=== PATIENT | male | born 1950 | race Caucasian/White ===

== ENCOUNTER → 2017-11-08 | Outpatient (CLI) | payer MEDICARE, OTHER ==
[~2017-11-08] MED LIST: ASPI81TA86 PO; CALC-635 PO; FEXO180T74 PO; FEXO180T87 PO; FLUT16SP19 NS; GLIM4TAB50 PO; GLY5 PO; HYDR-2966 PO; INSU100I30 SQ; LISI-355 PO; LISI-362 PO; METF-420 PO; METF10002 PO; METO-253 PO; METO100T20 PO; MOMR NS; OMEG-11 PO; OMEP-125 PO; OMEP-153 PO; PEN1DIS. MC; PNEI IJ; SIMV-49 PO; SITA100T9 PO
--- NOTE | 2017-11-09 20:25 | RADIOLOGY IMAGING REPORT ---
FACILITY: [facility] [place] PATIENT NAME: IMAN BO : [id number] MR: [id number] V: [id number] EXAM DATE: ORDERING PHYSICIAN: MJ TAN TECHNOLOGIST: Caty Quarles EXAMINATION:TWO-DIMENSIONAL ECHOCARDIOGRAPH REASON:NONRHEUMATIC AORTIC STENOSIS 2D Measurements (normal values in centimeters) LV endLV endRV endVent.LV PostAorticLeftPercent DiastolicSystolicDiastolicSeptumWallRootAtriumShortening (3.5-5.7)(0.9-2.6)(0.6-1.1)(0.6-1.1)(2.0-3.7)(1.9-4.0)(25-35%) [id number]% STROKE VOLUME: 77ml ESTIMATED EJECTION FRACTION:62% PARASTERNAL LONG AXIS: Overall left ventricular systolic function appears to be normal. Right ventricle appears to contract normally & the TAPSE is measured within normal ranges at 2.4. There is mild concentric left ventricle thickening. No evidence for any outflow tract obstruction. There is mitral annular calcification & the aortic valve appears to be very stenotic. Color examination of the valves reveals a trace of aortic insufficiency & a trace of mitral insufficiency in this view. PARASTERNAL SHORT AXIS: Overall left ventricular function again appears to be normal. Mild concentric left ventricle thickening present. The right ventricle is enlarged. Aortic valve is not well seen but probably is trileaflet in configuration. It is heavily stenotic. APICAL FOUR AND TWO CHAMBER: Normal left ventricular systolic function. The chamber sizes appear to be normal except for the left atrium which appears to be enlarged in this view. The right ventricle appears to be normal in size in this view. Aortic valve area was measured at .56cm2 with a mean pressure gradient across the valve of 54mm Hg & a dimensionless index of .2. Mitral valve area measured within normal ranges at 2.6cm2. The tricuspid regurgitation Vmax measured 1.6m/sec. Left atrial volume is moderately increased at 38ml/m2. Right atrial volume is measured within normal ranges at 27ml/m2. Trace of mitral & tricuspid insufficiency is noted. SUBCOSTAL VIEW: No pericardial effusion was noted. No atrioseptal or ventriculoseptal defects were appreciated. Doppler examination of the mitral valve in diastole does reveal the A wave > E wave. IVC is normal in size. OVERALL IMPRESSION: 1. Normal left ventricular ejection fraction of approximately 62% with a Grade 1 mild decrease in diastolic function. 2. Mild concentric left ventricular thickening but no evidence for any outflow tract obstruction. 3. Right ventricle is mildly enlarged & the left atrium is also moderately enlarged. 4. Possible trileaflet aortic valve. It appears to be heavily calcified & severely stenotic. The valve area measures .56cm2 with a mean pressure gradient across the valve of 54mm Hg & a dimensionless index of .2. A trace of aortic insufficiency was noted. 5. Mitral annular calcification but mitral valve appears to open normally. There is a trace of mitral insufficiency. 6. Trace of pulmonic insufficiency. 7. Trace amount of tricuspid insufficiency with estimated right ventricular systolic pressures within normal ranges at 14mm Hg. 8. In comparison with the examination done on 09/14/16 the aortic valve has gotten significantly smaller. It is now in the severely stenotic range. The left ventricle has also increased in size as well as the right ventricle. No other changes were noted. Dictated by: Keshawn Lin M.D. on 11/08/2017 at 17:35 Transcribed by: ANY on 11/09/2017 at 10:18 Approved by: Keshawn Lin M.D. on 11/09/2017 at 20:24 [facility]
== END ==
LOC: US 02:21
PROVIDERS: ATTEND Internal Medicine Cardiovascular Disease
DX: I50.30 Unspecified diastolic (congestive) heart failure (principal); I51.7 Cardiomegaly; I25.10 Atherosclerotic heart disease of native coronary artery without angina pectoris; I35.2 Nonrheumatic aortic (valve) stenosis with insufficiency; I34.0 Nonrheumatic mitral (valve) insufficiency
CPT/HCPCS: 93306

== ENCOUNTER → 2018-02-02 | Outpatient (CLI) | payer MEDICARE, OTHER ==
[~2018-02-02] MED LIST changes: +INSU100I10 SC; +METF-421 PO
== END ==
LOC: LAB 08:08
PROVIDERS: ATTEND Emergency Medicine
DX: E11.9 Type 2 diabetes mellitus without complications (principal)
CPT/HCPCS: 36415; 83036

== ENCOUNTER → 2018-04-07 | Outpatient (CLI) | payer MEDICARE, OTHER ==
[~2018-04-07] MED LIST changes: -METF-421 PO; +METF-452 PO; +NPH,100V12 SQ; +SYRI-1525 MC; +bipap
== END ==
LOC: RESP 19:45
PROVIDERS: ATTEND Emergency Medicine
DX: G47.33 Obstructive sleep apnea (adult) (pediatric) (principal); G47.61 Periodic limb movement disorder; G47.36 Sleep related hypoventilation in conditions classified elsewhere

== ENCOUNTER → 2018-08-04 | Outpatient (CLI) | payer MEDICARE ==
[2018-08-04 08:01] LABS: PLATELET COUNT, AUTOMATED 230 K/uL (150-450)
[2018-08-04 09:12] LABS: LDL CHOLESTEROL 33 mg/dl
== END ==
LOC: LAB 07:45
PROVIDERS: ATTEND Emergency Medicine
DX: Z12.5 Encounter for screening for malignant neoplasm of prostate (principal); E78.5 Hyperlipidemia, unspecified; I10 Essential (primary) hypertension; E11.9 Type 2 diabetes mellitus without complications
CPT/HCPCS: 36415; 83036; 85025; G0103; 82040; 82247; 82310; 82374; 82435; 82465; 82565; 82947; 83718; 84075; 84132; 84153; 84155; 84295; 84450; 84460; 84478; 84520

== ENCOUNTER 2019-03-16 10:00 | Outpatient (RCR) | payer MEDICARE ==
[2018-12-18 16:52] VITALS: BP 112/64
[2018-12-18 16:54] VITALS: BP 118/66
--- NOTE | 2018-12-20 13:39 | CARDIAC REHAB PLAN OF CARE ---
Physician: Solitario Brown MD Patient is being seen: Prudence Rudolph MS Medical Diagnosis: TAVR Date of Onset: 12/05/18 Date of Initial Evaluation: 12/18/18 INTERVENTIONS: Due Date: 01/20/19 Patient Assessment: Patient is a 67yr old male who comes to cardiac rehab following a TAVR placement on 12/05/18. He has a significant health history with HTN, high cholesterol, Type 2 Diabetes, and sleep apnea. He is 510 and weighs 225lbs, resulting in a BMI of 32.3 kg/m2. He is moderately sedentaryreporting that he and his go for a 45 min walk most days of the week, but other than that he does not do much physical activity. He is somewhat motivated to begin this program, and has established the following goals: 1. To improve overall health and feel better on a regular basis, 2. To improve stamina, 3. To increase his life expectancy and maintain independence. Exercise Assessment: Patients physical activity history primary consists of leisure walking. During his 6-MinuteWalk Test, the patient walked a total of 1325ft for an average speed of 2.5mph. For exercise machines, the patient prefers using the NuStep, arm ergometer, and upright bike (with the upright bike increasing his HR the most). While exercising, the patients HR remained between 70-103bpm and SPO2 dropped to 83%. With proper breathing techniques the patient is capable of maintaining SPO2 saturations >90%. The patient reports wanting to do strength training exercises at home. He does not have any experience with stretches/flexibility training and will need to be coached. Exercise Plan Goals: Goals will be to slowly increase intensity of exercise via THR and average METs achieved. We also will aim to educate the patient such that he knows how to use proper breathing techniques and the importance of stretching on a regular basis. Exercise Prescription: Frequency: 3 Days/Week (MWF), may need to adjust for patients summer schedule. Intensity: [id number], METs 3.5-4.0 Time: 40 minutes/session Exercise Reassessment (Date: ) Exercise Discharge/Follow-Up (Date: ) Nutrition Assessment: The patient is somewhat disinterested in talking about diet. He reports his is in charge of their nutrition, so he does not pay much attention. He reports losing approximately 20lbs over the past 2 years, with portion control being the main altering factor. They eat a typical [place] style diet, but have been trying to incorporate more vegetables and fish, while reducing the amount of red meat they consume. The patient reports his biggest weak points are ice cream and portion control. Nutrition Plan Goals: To help facilitate nutrition education in combination with his spouse. It is our goal to make the patient have interest and take responsibility for his dietary intake. Intervention: Our main goal will be to provide heart healthy education on a regular, if not daily basis. Regular nutritional conversation will help create a sense of responsibility and importance in the patients mind. Education: Education will focus on the importance of high fruits and vegetables, fiber/whole grain, and healthy nutritional swaps that can be made in place of his favorite foods. Nutrition Reassessment (Date: ) Nutrition Discharge/Follow-Up (Date: ) Psychosocial Assessment: The patient appears to be an overall happy person with an overall positive outlook and respect for the people around him. He scored relatively low on his Hospital Anxiety and Depression Scale (HADS) assessment2/21 for depression and 5/21 for anxiety. The patient is appropriately responsive, but does seem to have some memory and focus/attention deficit. Psychosocial Plan Goals: Our goal is to provide and maintain a positive exercise environment where the patient feels safe and comfortable exercising, learning, and socializing. Intervention: We will aim to get to know the patient on a professional level, such that we can alter his CR program to fit his needs. We need to identify the ways of which he is most easily motivated so we can tailor our discussions to fit his personality and influences. Education: Education will focus on benefits of exercise and socialization for overall health and longevity. Psychosocial Reassessment (Date: ) Psychosocial Discharge/Follow-Up (Date: ) ANANT
[2018-12-20 16:56] VITALS: BP 128/66
[2018-12-20 16:58] VITALS: BP 122/76
[2018-12-22 12:55] VITALS: BP_SYST 124; BP_SYST 128; BP_DIAS 68; BP_DIAS 80
[2018-12-25 12:52] VITALS: BP_SYST 122; BP_SYST 128; BP_DIAS 68; BP_DIAS 82
[2018-12-29 17:26] VITALS: BP 128/80
[2018-12-29 17:28] VITALS: BP 120/70
[2019-01-01 15:53] VITALS: BP_SYST 118; BP_SYST 122; BP_DIAS 62; BP_DIAS 70
[2019-01-03 16:39] VITALS: BP_SYST 110; BP_SYST 118; BP_DIAS 62; BP_DIAS 64
[2019-01-05 12:52] VITALS: BP 128/66
[2019-01-05 12:53] VITALS: BP 106/70
[2019-01-10 13:01] VITALS: BP 114/62
[2019-01-10 13:02] VITALS: BP 136/56
--- NOTE | 2019-01-16 10:43 | CARDIAC REHAB PLAN OF CARE ---
Physician: Solitario Brown MD Patient is being seen: Prudence Rudolph MS Medical Diagnosis: TAVR Date of Onset: 12/05/18 Date of Initial Evaluation: 12/18/18 Date patient was last seen: 01/10/19 Number of treatments: 10 Number of cancellations/No Shows: 2 INTERVENTIONS: Due Date: 02/15/19 Exercise Reassessment (Date: 01/20/19): The patient has been improving at a gradual pace for the previous month. He has attended regularly and exercises for approximately 50-60 minutes/session. The biggest challenge is to engage him to exercise at a moderate intensity. He typically maintains a light effortkeeping his HR between 80-88bpm. It takes encouragement and frequent reminders to get him to exercise in his THR zone (90-105bpm). Over his most previous week, he was starting to get better at maintaining this level of exertion on his own (averaging 92bpm and 3.2 METs) but still needs helpful reminders. He has gotten better at maintaining high SPO2 levels (>88%) and is starting to practice his proper breathing techniques. Over the next month the patients exercise goals will be as follows: Frequency: 2 days/week (he will be going to his cabin on weekends) Intensity: 3.8 METs THR Zone 95-110bpm Time: 50+ minutes Type: NuStep & Arm Ergometer, with supplemental SciFit and Walking We will create for him a THR zone chart so that he can see where he needs to be in a more physical and visual sense. Nutrition Reassessment (Date: 01/20/19): Patient continues to receive general educational material related to nutrition, but is still disinterested in his dietary preparation and consumption. Psychosocial Reassessment (Date: 01/20/19): Patient reports enjoying cardiac rehab, specifically the information and education that he receives. He feels well cared for and monitored. It is best to speak to him in simple terms and frequently in order to help him best understand what is being asked of him. He is best motivated by positive encouragement. He continues to have positive feedback and enjoys his time here. ANANT
[2019-01-17 18:36] VITALS: BP 118/70
[2019-01-17 18:37] VITALS: BP 110/72
[2019-01-22 12:54] VITALS: BP 116/60
[2019-01-22 12:55] VITALS: BP 132/66
[2019-01-24 12:50] VITALS: BP 118/72
[2019-01-24 12:55] VITALS: BP 104/60
[2019-02-02 12:50] VITALS: BP 120/72
[2019-02-02 12:51] VITALS: BP 112/68
[2019-02-05 12:52] VITALS: BP 128/72
[2019-02-05 12:53] VITALS: BP 108/62
[2019-02-07 12:57] VITALS: BP 110/62
[2019-02-07 12:58] VITALS: BP 118/70
[2019-02-12 13:17] VITALS: BP 122/58
[2019-02-12 13:18] VITALS: BP 102/60
[2019-02-14 12:52] VITALS: BP 110/70
[2019-02-14 12:53] VITALS: BP 124/66
[2019-02-19 13:14] VITALS: BP 116/72
[2019-02-19 13:15] VITALS: BP 120/66
[2019-02-21 13:08] VITALS: BP 116/68
[2019-02-21 13:09] VITALS: BP 112/64
--- NOTE | 2019-02-21 15:55 | CARDIAC REHAB PLAN OF CARE ---
Physician: Solitario Brown MD Patient is being seen: Prudence Rudolph MS Medical Diagnosis: TAVR Date of Onset: 12/05/18 Date of Initial Evaluation: 12/18/18 Date patient was last seen: 02/21/19 Number of treatments: 19 INTERVENTIONS: Goals Due Date: 03/24/19 Exercise Reassessment (02/21/19): The patient has immensely improved since his most previous care plan. He regularly achieves his THR zone, averaging HR between 90-105bpm depending on the equipment he is using. He is learning to properly ventilate and always has SPO2 level s above 88% when exercising. His MET levels have not improved (still averaging near 3.3). During his leisure time he and his go for frequent walks and hikes. Over the next month our goal is to increase his intensity of exercise to 3.8 METs on average while still maintaining his HR zone (95-110bpm) and SPO2 above 90%. Nutrition Reassessment (02/21/19): No update on the patient dietary changes. He is resistant/uninterested in receiving information on nutrition. Psychosocial Reassessment (02/21/19): The patient has been highly motivated to exercise and responds well to positive reinforcement. It has been best to instruct him with the use of visual aids to help him understand what is being asked of him and what is being discussed. His provides him good social support at home and encourages him to exercise frequently during his leisure time. ANANT
[2019-02-26 16:25] VITALS: BP_SYST 110; BP_SYST 114; BP_DIAS 64; BP_DIAS 66
[2019-02-28 12:26] VITALS: BP 136/78
[2019-02-28 12:30] VITALS: BP 104/62
[2019-03-02 13:13] VITALS: BP 126/64
[2019-03-02 13:14] VITALS: BP 114/64
[2019-03-05 13:04] VITALS: BP 114/64
[2019-03-05 13:05] VITALS: BP 112/62
[2019-03-12 13:23] VITALS: BP 108/62
[2019-03-12 13:24] VITALS: BP 102/60
[2019-03-14 13:04] VITALS: BP 106/64
[2019-03-14 13:05] VITALS: BP 122/70
[~2019-03-16 10:00] MED LIST changes: +EMPA10TA PO; +NPH,100V2 SUBQ; -OMEP-125 PO; +OMEP-126 PO
[2019-03-16 12:47] VITALS: BP 118/66
[2019-03-16 12:48] VITALS: BP 106/70
== END 2019-03-18 ==
LOC: CARD 10:00
PROVIDERS: ATTEND Internal Medicine
DX: Z95.2 Presence of prosthetic heart valve (principal); I10 Essential (primary) hypertension
CPT/HCPCS: 93798